=== PATIENT | male | born 1965 | race Caucasian/White ===

== ENCOUNTER 2025-09-11 09:00 | Day surgery (SDC) | payer OTHER, SELFPAY ==
--- NOTE | 2025-09-11 10:50 | ITS.CL.CARDI ---
[employer] - Cardioversion
Cardioversion
Procedure Report:
Date of Procedure: September 11 2025
Procedure: Cardioversion
Indication: Symptomatic atrial fibrillation
Performing Physician: Alvaro Pandey DO, FACC
Technique: The patient was brought to the holding area. Signed informed consent was obtained. A time out was called and performed. The patient was anesthetized by the anesthesia service. Anticoagulation status was reviewed and appropriate. R2 pads
were placed anteriorly and posteriorly. A 200 J synchronized biphasic shock restored normal sinus rhythm without significant bradycardia. There were no complications.
Conclusion: Uncomplicated cardioversion from atrial fibrillation to sinus rhythm.
Recommendation: Routine post cardioversion care. Continue remote computer terminal operator anticoagulation.
== END 2025-09-11 11:30 | disposition home or self-care (01) ==
LOC: CATH 09:00
PROVIDERS: ATTENDING PHYSICIAN Internal Medicine Cardiovascular Disease; PRIMARYCARE PHYSICIAN Internal Medicine
DX: I48.91 Unspecified atrial fibrillation (principal); Z79.01 Long term (current) use of anticoagulants; I44.0 Atrioventricular block, first degree; I25.2 Old myocardial infarction; I10 Essential (primary) hypertension; I25.5 Ischemic cardiomyopathy
CPT/HCPCS: 92960; 93005